=== PATIENT | male | born 1990 | race African-American/Black ===

== ENCOUNTER 2018-11-14 13:08 | Emergency (ER) | payer OTHER ==
[~2018-11-14] VITALS: Ht 175.3 cm; Wt 84.5 kg
[~2018-11-14 13:08] MED LIST: CYCL10TA PO; NAPR-837 PO
[2018-11-14] MEDS ORDERED: cefTRIAXone SOD 250 MG VIAL (J0696) IM ONE (13:45)
[2018-11-14] MEDS ORDERED: AZITHROMYCIN 250 MG TAB PO ONE (13:45)
[2018-11-14] MEDS ORDERED: LIDOCAINE 1% SDV 5 ML VIAL DILUENT ONE (13:45)
[2018-11-14 14:22] VITALS: BP 132/80
[2018-11-14 15:56] LABS: CHLAMYDIA DNA AMPLIFICATION NEGATIVE (NEGATIVE); GC DNA AMPLIFICATION NEGATIVE (NEGATIVE)
== END 2018-11-14 14:24 | disposition home or self-care (01) ==
LOC: M ED 13:08
DX: R36.9 Urethral discharge, unspecified (principal); Z88.7 Allergy status to serum and vaccine
CPT/HCPCS: 87491; 87591; 96372; 99283; J0696